=== PATIENT | female | born 1995 | race Hispanic/Latino ===

== ENCOUNTER 2023-02-24 16:25 | Emergency (ER) | payer OTHER ==
[2023-02-24] MEDS ORDERED: Cyclobenzaprine 10 MG TAB ONE (17:44)
[2023-02-24] MEDS ORDERED: Ketorolac Tromethamine 30 MG/ML VIAL ONE (17:44)
== END 2023-02-24 19:03 | disposition home or self-care (01) ==
LOC: ERS 16:25
DX: M62.838 Other muscle spasm (principal)
CPT/HCPCS: 70450; 72020; 72125; 96372; J1885